=== PATIENT | male | born 1995 | race Hispanic/Latino ===

== ENCOUNTER 2020-06-22 12:45 | Emergency (ER) | payer SELFPAY ==
--- NOTE | 2020-06-22 17:43 | EDPHYS ---
Physician Documentation [facility] Name: Basim Pryor Age: 24 yrs Sex: Male : 1995 Arrival Date: 06/22/2020 Time: 12:49 Bed 26 Private MD: ED Physician Agusto Kong HPI: 06/22 17:38 This 24 yrs old Male presents to ER via Ambulatory with complaints of Cough, cp Fever. 17:38 The patient or guardian reports cough, that is intermittent, with productive sputum. cp Onset: The symptoms/episode began/occurred 2-3 days ago. Associated signs and symptoms: Pertinent positives: fever, sore throat, Pertinent negatives: diarrhea, vomiting. Historical: - Allergies: 14:51 No Known Allergies; ca1 - PMHx: 14:51 None; ca1 - PSHx: 14:51 None; ca1 - Immunization history:: Adult Immunizations up to date, Flu vaccine is not up to date. - Social history:: Smoking status: Patient denies any tobacco usage or history of. ROS: 17:39 Eyes: Negative for injury, pain, redness, and discharge. cp 17:39 Constitutional: Negative for fever, poor PO intake. 17:39 ENT: Positive for sore throat, Negative for ear pain, difficulty swallowing, difficulty handling secretions. 17:39 Respiratory: Positive for cough, Negative for shortness of breath, wheezing. 17:39 Abdomen/GI: Negative for abdominal pain, nausea, vomiting, and diarrhea, constipation. 17:39 Skin: Negative for rash. 17:39 Neuro: Negative for altered mental status, headache, weakness. 17:39 All other systems are negative. Exam: 17:40 Head/Face: Normocephalic, atraumatic. cp 17:40 Constitutional: The patient appears in no acute distress, alert, awake, non-toxic, well developed, well nourished. 17:40 Eyes: Periorbital structures: appear normal, Conjunctiva: normal, no exudate, no injection, Sclera: no appreciated abnormality, Lids and lashes: appear normal, bilaterally. 17:40 ENT: External ear(s): are unremarkable, Ear canal(s): are normal, clear, TM's: dullness, bilaterally, Nose: is normal, Mouth: Lips: moist, Oral mucosa: moist, Posterior pharynx: Tonsils: no enlargement, no exudate, swelling, is not appreciated, erythema, that is mild, exudate, is not appreciated. 17:40 Neck: Lymph nodes: no appreciated lymphadenopathy. 17:40 Chest/axilla: Inspection: normal. 17:40 Cardiovascular: Rate: normal. 17:40 Respiratory: the patient does not display signs of respiratory distress, Respirations: normal, no use of accessory muscles, no retractions, labored breathing, is not present, Breath sounds: are clear throughout, no decreased breath sounds, no stridor, no wheezing. Vital Signs: 14:48 BP 144 / 81; Pulse 99; Resp 18 S; Temp 99(TE); Pulse Ox 100% on R/A; Weight 58.97 kg ca1 (R); Height 5 ft. 6 in. (167.64 cm) (R); Pain 0/10; 17:29 BP 137 / 77; Pulse 97; Resp 17; Pulse Ox 99% on R/A; mh5 14:48 Body Mass Index 20.98 (58.97 kg, 167.64 cm) ca1 MDM: 17:27 Patient medically screened. cp 17:30 Differential Diagnosis: Bronchitis Influenza Pharyngitis Pneumonia. cp 17:42 Data reviewed: vital signs, nurses notes, lab test result(s), and as a result, I will cp discharge patient. 17:42 Counseling: I had a detailed discussion with the patient and/or guardian regarding: the cp historical points, exam findings, and any diagnostic results supporting the discharge/admit diagnosis, lab results, to return to the emergency department if symptoms worsen or persist or if there are any questions or concerns that arise at home. ED course: VSS. Patient appears non-toxic and no signs of respiratory distress. Will discharge to home for continued monitoring with instructions to quarantine while awaiting results of COVID-19 testing. 06/22 14:52 Order name: Strep ca1 06/22 14:52 Order name: Flu ca1 06/22 14:52 Order name: COVID-19 ca1 06/22 16:35 Order name: Throat Culture EDMS Administered Medications: No medications were administered Disposition: 18:06 Co-signature as Attending Physician, Agusto Kong MD. rn Disposition: 06/22/20 17:43 Discharged to Home. Impression: Acute upper respiratory infection, unspecified. - Condition is Stable. - Discharge Instructions: Upper Respiratory Infection, Adult, COVID-19. - Prescriptions for Tessalon Perles 100 mg Oral Capsule - take 1 capsule by ORAL route every 8 hours As needed; 15 capsule. - Medication Reconciliation Form, Thank You Letter, Antibiotic Education, Prescription Opioid Use form. - Follow up: Private Physician; When: 2 - 3 days; Reason: Worsening of condition. - Problem is new. - Symptoms are unchanged. Signatures: Dispatcher [employer] EDHI Agusto Kong MD MD rn Osman Mcgovern PA PA cp Jeremy, Samantha RN RN ca1 Corrections: (The following items were deleted from the chart) 17:52 17:43 06/22/2020 17:43 Discharged to Home. Impression: Acute upper respiratory ca1 infection, unspecified. Condition is Stable. Forms are Medication Reconciliation Form, Thank You Letter, Antibiotic Education, Prescription Opioid Use. Follow up: Private Physician; When: 2 - 3 days; Reason: Worsening of condition. Problem is new. Symptoms are unchanged. cp
--- NOTE | 2020-06-22 17:43 | ER ---
Nurse's Notes [facility] Name: Basim Pryor Age: 24 yrs Sex: Male : 1995 Arrival Date: 06/22/2020 Time: 12:49 Bed 26 Private MD: Diagnosis: Acute upper respiratory infection, unspecified Presentation: 06/22 14:48 Chief complaint: Patient states: Cough and congestion, sore throat, and slight fever ca1 since last night. Htemp 100F. Coronavirus screen: Client denies travel out of the [place] in the last 14 days. congestion, cough unrelated to allergies, fever, Client presents with at least one sign or symptom that may indicate coronavirus-19. Standard/surgical mask placed on the client. Provider contacted for isolation considerations. Ebola Screen: Patient negative for fever greater than or equal to 101.5 degrees Fahrenheit, and additional compatible Ebola Virus Disease symptoms Patient denies exposure to infectious person. Patient denies travel to an Ebola-affected area in the 21 days before illness onset. No symptoms or risks identified at this time. Initial Sepsis Screen: Does the patient meet any 2 criteria? No. Patient's initial sepsis screen is negative. Does the patient have a suspected source of infection? No. Patient's initial sepsis screen is negative. Risk Assessment: Do you want to hurt yourself or someone else? Patient reports no desire to harm self or others. Onset of symptoms was June 22, 2020. 14:48 Method Of Arrival: Ambulatory ca1 14:48 Acuity: SOULEYMANE 4 ca1 Historical: - Allergies: 14:51 No Known Allergies; ca1 - PMHx: 14:51 None; ca1 - PSHx: 14:51 None; ca1 - Immunization history:: Adult Immunizations up to date, Flu vaccine is not up to date. - Social history:: Smoking status: Patient denies any tobacco usage or history of. Screenin:25 Abuse screen: Denies threats or abuse. Denies injuries from another. Nutritional ca1 screening: No deficits noted. Tuberculosis screening: No symptoms or risk factors identified. Fall Risk None identified. Assessment: 17:25 General: Appears in no apparent distress. comfortable, Behavior is calm, cooperative, ca1 appropriate for age, Reports fever for 12-24 hours. Pain: Denies pain. Neuro: Level of Consciousness is awake, alert, obeys commands, Oriented to person, place, time, situation. Respiratory: Airway is patent Respiratory effort is even, unlabored, Respiratory pattern is regular, symmetrical, Breath sounds are clear bilaterally. EENT: Reports nasal congestion. Derm: Skin is intact, is healthy with good turgor, Skin is pink, warm \T\ dry. Musculoskeletal: Circulation, motion, and sensation intact. Capillary refill < 3 seconds. Vital Signs: 14:48 BP 144 / 81; Pulse 99; Resp 18 S; Temp 99(TE); Pulse Ox 100% on R/A; Weight 58.97 kg ca1 (R); Height 5 ft. 6 in. (167.64 cm) (R); Pain 0/10; 17:29 BP 137 / 77; Pulse 97; Resp 17; Pulse Ox 99% on R/A; mh5 14:48 Body Mass Index 20.98 (58.97 kg, 167.64 cm) ca1 ED Course: 12:49 Patient arrived in ED. ag5 14:50 Triage completed. ca1 14:51 Arm band placed on right wrist. ca1 14:54 Strep Sent. ca1 14:54 Flu Sent. ca1 14:55 COVID-19 Sent. ca1 16:26 Strep Sent. ca1 16:26 Flu Sent. ca1 17:24 Osman Mcgovern PA is PHCP. cp 17:24 Agusto Kong MD is Attending Physician. cp 17:24 Samantha Luna, JORJE is Primary Nurse. ca1 17:25 Patient has correct armband on for positive identification. Bed in low position. Call ca1 light in reach. Side rails up X 1. Pulse ox on. NIBP on. 17:51 No provider procedures requiring assistance completed. Patient did not have IV access ca1 during this emergency room visit. Administered Medications: No medications were administered Outcome: 17:43 Discharge ordered by . cp 17:51 Discharged to home ambulatory, with family. ca1 17:51 Condition: stable 17:51 Discharge instructions given to patient, Instructed on discharge instructions, follow up and referral plans. medication usage, Demonstrated understanding of instructions, follow-up care, medications, Prescriptions given X 1. 17:52 Patient left the ED. ca1 Addendum: 06/25/2020 08:58 Addendum: COVID-19 Result: Negative result given to RN to notify pt. Notified pt of d m5 negative COVID 19 swab results. Pt advised that even with a negative test result they should remain in isolation until symptom free for 3 days without medication. Pt also advised to return to the ED for worsening symptoms. Signatures: Karoline Stokes, JORJE RN dm5 Osman Mcgovern PA PA cp Martinez, Maria 5 Samantha Luna RN RN ca1 Morgan No ag5 Corrections: (The following items were deleted from the chart) 06/22 14:52 14:48 Chief complaint: Patient states: Cough and congestion and slight fever since last ca1 night. Htemp 100F. ca1
[2020-06-22 17:56] VITALS: TEMP 99
[2020-06-22 17:57] VITALS: BP 137/77; O2SAT 99
== END 2020-06-22 17:52 | disposition home or self-care (01) ==
LOC: ER 12:45
DX: J06.9 Acute upper respiratory infection, unspecified (principal); Z20.828 Contact with and (suspected) exposure to other viral communicable diseases
CPT/HCPCS: 87070; 87081; 87804; 99283; U0002

== ENCOUNTER → 2023-06-14 | Emergency (ER) | payer SELFPAY ==
--- NOTE | 2023-06-14 08:40 | ER ---
Nurse's Notes [facility] Name: Basim Pryor Age: 27 yrs Sex: Male : 1995 Arrival Date: 06/14/2023 Time: 08:17 Bed 14 Private MD: Diagnosis: Dental caries, unspecified Presentation: 06/14 08:25 Chief complaint: Patient states: he has a left sided tooth ache that started yesterday, ap3 and now the swelling feels like it is hard to swallow and hard to breathe. Coronavirus screen: At this time, the client does not indicate any symptoms associated with coronavirus-19. Ebola Screen: No symptoms or risks identified at this time. Initial Sepsis Screen: Does the patient meet any 2 criteria? No. Patient's initial sepsis screen is negative. Does the patient have a suspected source of infection? Yes: Other: tooth pain. Risk Assessment: Do you want to hurt yourself or someone else? Patient reports no desire to harm self or others. Onset of symptoms was June 13, 2023. 08:25 Method Of Arrival: Ambulatory ap3 08:25 Acuity: SOULEYMANE 4 ap3 Triage Assessment: 08:31 General: Appears in no apparent distress. Behavior is calm, cooperative, appropriate ap3 for age. Pain: Complains of pain in left jaw Pain currently is 6 out of 10 on a pain scale. Pain began 1 day ago. EENT: Reports left sided tooth pain and left sided throat swelling. Neuro: Level of Consciousness is awake, alert, obeys commands, Oriented to person, place, time, situation. Cardiovascular: Patient's skin is warm and dry. Respiratory: Reports shortness of breath Onset: The symptoms/episode began/occurred gradually, the patient has mild shortness of breath. Historical: - Allergies: 08:28 No Known Allergies; ap3 - Home Meds: 08:28 None [Active]; ap3 - PMHx: 08:28 None; ap3 - Immunization history:: Adult Immunizations up to date. - Social history:: Smoking status: Patient denies any tobacco usage or history of. Screenin:32 [facility] ED Fall Risk Assessment (Adult) History of falling in the last 3 months, ap3 including since admission No falls in past 3 months (0 pts). Abuse screen: Denies threats or abuse. Nutritional screening: No deficits noted. Tuberculosis screening: No symptoms or risk factors identified. Assessment: 08:32 Respiratory: Airway is patent Respiratory effort is even, unlabored. ap3 08:52 Reassessment: Patient appears in no apparent distress at this time. Patient and/or db family updated on plan of care and expected duration. Pain level reassessed. Patient is alert, oriented x 3, equal unlabored respirations, skin warm/dry/pink. General: Appears in no apparent distress. comfortable, Behavior is calm, cooperative. Pain: Complains of pain in face and left jaw. Neuro: Level of Consciousness is awake, alert, obeys commands, Oriented to person, place, time, situation. Cardiovascular: No deficits noted. Respiratory: No deficits noted. Airway is patent Respiratory effort is even, unlabored, Breath sounds are clear. Vital Signs: 08:25 BP 132 / 85; Pulse 100; Resp 17; Temp 98.4; Pulse Ox 100% ; Weight 54.43 kg; Height 5 ap3 ft. 6 in. ; Pain 6/10; 08:25 Body Mass Index 19.37 (54.43 kg, 167.64 cm) ap3 08:25 Pain Scale: Adult ap3 ED Course: 08:20 Patient arrived in ED. mg5 08:23 David Pimentel MD is Attending Physician. rt 08:27 Juliet Evans, RN is Primary Nurse. db 08:28 Triage completed. ap3 08:33 Arm band placed on right wrist. ap3 08:33 Patient has correct armband on for positive identification. Bed in low position. Call ap3 light in reach. Adult w/ patient. Pulse ox on. NIBP on. 08:52 Provided Education on: DISCHARGE. db 08:52 No provider procedures requiring assistance completed. Patient did not have IV access db during this emergency room visit. Administered Medications: No medications were administered Medication: 08:52 VIS not applicable for this client. db Outcome: 08:40 Discharge ordered by . rt 08:52 Discharged to home ambulatory, with family, db 08:52 Condition: stable 08:52 Discharge instructions given to patient, family, Instructed on discharge instructions, follow up and referral plans. Prescriptions given X 1, 08:54 Patient left the ED. db Signatures: Vidhya Mesa RN RN ap3 Juliet Evans RN RN db David Pimentel MD MD rt Tammy Bledsoe mg5
--- NOTE | 2023-06-14 08:40 | EDPHYS ---
Physician Documentation [facility] Name: Basim Pryor Age: 27 yrs Sex: Male : 1995 Arrival Date: 06/14/2023 Time: 08:17 Bed 14 Private MD: ED Physician David Pimentel HPI: 06/14 08:43 This 27 yrs old Male presents to ER via Ambulatory with complaints of rt Toothache. 08:43 Patient presents to the ED with a left lower dental pain starting overnight. The rt patient reported some swelling to the neck, initially with difficulty breathing, no difficulty breathing currently, states that the pain has improved. The mother used some clove at the area, gave him 1 dose of amoxicillin. The patient does have a dentist. Denies other acute complaints, symptoms are moderate severity, no other aggravating alleviating factors.. Historical: - Allergies: 08: No Known Allergies; ap3 - Home Meds: 08: None [Active]; ap3 - PMHx: 08:28 None; ap3 - Immunization history:: Adult Immunizations up to date. - Social history:: Smoking status: Patient denies any tobacco usage or history of. ROS: 08:43 Constitutional: Negative for fever, chills, and weight loss, Cardiovascular: Negative rt for chest pain, palpitations, and edema, Respiratory: Negative for shortness of breath, cough, wheezing, and pleuritic chest pain, Abdomen/GI: Negative for abdominal pain, nausea, vomiting, diarrhea, and constipation, Skin: Negative for injury, rash, and discoloration, Neuro: Negative for headache, weakness, numbness, tingling, and seizure, 08:43 ENT: Positive for Dental pain, negative for rhinorrhea, Exam: 08:43 Constitutional: This is a well developed, well nourished patient who is awake, alert, rt and in no acute distress. Head/Face: Normocephalic, atraumatic. Chest/axilla: Normal chest wall appearance and motion. Nontender with no deformity. No lesions are appreciated. Cardiovascular: Regular rate and rhythm with a normal S1 and S2. No gallops, murmurs, or rubs. Normal PMI, no JVD. No pulse deficits. Respiratory: Lungs have equal breath sounds bilaterally, clear to auscultation and percussion. No rales, rhonchi or wheezes noted. No increased work of breathing, no retractions or nasal flaring. Abdomen/GI: Soft, non-tender, with normal bowel sounds. No distension or tympany. No guarding or rebound. No evidence of tenderness throughout. 08:43 ENT: Voice normal, dental carry noted to the left lower molar, no appreciable swelling, erythema. Vital Signs: 08:25 BP 132 / 85; Pulse 100; Resp 17; Temp 98.4; Pulse Ox 100% ; Weight 54.43 kg; Height 5 ap3 ft. 6 in. ; Pain 6/10; 08:25 Body Mass Index 19.37 (54.43 kg, 167.64 cm) ap3 08:25 Pain Scale: Adult ap3 MDM: 08:33 Patient medically screened. rt 08:43 Differential diagnosis: Dental carry, dental abscess. Data reviewed: vital signs, rt nurses notes. Test considered but Not performed: CT: No clinical signs or symptoms to suggest RPA, EMERGENCY MANAGEMENT SPECIALIST, [facility] angina, CT scan is not indicated.. Counseling: I had a detailed discussion with the patient and/or guardian regarding the historical points, exam findings, and any diagnostic results supporting the discharge/admit diagnosis, the need for outpatient follow up, to return to the emergency department if symptoms worsen or persist or if there are any questions or concerns that arise at home. Administered Medications: No medications were administered Disposition Summary: 06/14/23 08:40 Discharge Ordered Notes: Location: Home rt Problem: new rt Symptoms: are unchanged rt Condition: Stable rt Diagnosis - Dental caries, unspecified rt Followup: rt - With: Private Physician - When: 2 - 3 days - Reason: Discharge Instructions: - Discharge Summary Sheet rt - Dental Caries, Adult rt Forms: - Medication Reconciliation Form rt - Thank You Letter rt - Antibiotic Education rt - Prescription Opioid Use rt - Patient Portal Instructions rt - Leadership Thank You Letter rt Prescriptions: - Amoxicillin 875 mg Oral Tablet - take 1 tablet ORAL route every 12 hours for 10 days; 20 tablet; Refills: 0, rt Product Selection Permitted Signatures: Vidhya Mesa RN RN ap3 David Pimentel MD MD rt
[2023-06-14 13:31] VITALS: BP 132/85; TEMP 98.4; O2SAT 100
== END ==
LOC: ER 08:17
DX: K02.9 Dental caries, unspecified (principal)
CPT/HCPCS: 99283